=== PATIENT | male | born 1980 | race Caucasian/White ===

== ENCOUNTER 2016-05-19 11:22 | Emergency (ER) | payer SELFPAY ==
[2016-05-19] MEDS ORDERED: Lidocaine 2%Visc 15ml 20 MG/ML UDC ONE (11:54)
[2016-05-19] MEDS ORDERED: Lidocaine 2%Visc 15ml 20 MG/ML UDC PO ONE (11:55)
[2016-05-19 12:14] VITALS: BP 121/88
--- NOTE | 2016-05-19 19:07 | ED Physician Documentation ---
General Adult - HISTORIAN Historian: patient - HPI Stated Complaint: wound left leg Chief Complaint: General Adult Further Comments: yes (36 year old male patient presents with complaints of right lower leg wound. States he cut his leg with a chainsaw on 05-15-16 and was seen by the [facility] in the ER, was instructed to follow up with physician there. Patient states he has been doing wet to dry dressing changed every 2 hours and has used all of his pain medications.) - ROS CONST: no problems EYES/ENT: none CVS/RESP: none GI/: none MS/SKIN/LYMPH: none NEURO/PSYCH: difficulty walking (due to leg pain). denies: headache, dizziness - PAST HX Past History: none Other History: none Allergies/Adverse Reactions: Allergies Allergy/AdvReac Type Severity Reaction Status Date / Time No Known Allergies Allergy Verified 05/19/16 12:05 Home Medications: Ambulatory Orders Medication Instructions Recorded Sulfamethoxazole/Trimethoprim 1 each PO BID 05/19/16 [Bactrim Ds] oxyCODONE HCL/ACETAMINOPHEN 1 tab PO Q4 PRN 05/19/16 [Percocet 5/325] - SOCIAL HX Smoking History: cigarettes Alcohol Use: occasionally - FAMILY HX Family History: No - VITAL SIGNS Vital Signs: Vital Signs Temp Pulse Resp BP Pulse Ox 98.1 F 98 H 18 121/88 97 05/19/16 13:20 05/19/16 13:20 05/19/16 13:20 05/19/16 13:20 05/19/16 13:20 - REVIEWED ASSESSMENTS Nursing Assessment Reviewed: Yes Vitals Reviewed: Yes Progress - Progress Progress: Viscous lidocaine to wound 1215 Small amount of debridment of non-viable tissue. Wound instructions reviewed with patient. Instructed to stop doing wet-dry every 2 hours, educated on wound bed healing. Xeroflow to wound bed, covered with 4x4, wrapped with kerlix. Explained patient needed to follow up with wound clinic. Patient states he does not have insurance and will not be following up. ED Results Lab/Radiology - Orders Orders: ED Orders Category Date Time Status Lidocaine 2%Visc 15ml [Xylocaine] Med 05/19/16 11:55 Discontinued 15 mg PO NOW ONE Lidocaine 2%Visc 15ml [Xylocaine] Med 05/19/16 11:54 Discontinued 300 mg .ROUTE .STK-MED ONE General Adult Physical Exam - PHYSICAL EXAM GENERAL APPEARANCE: mild distress RESPIRATORY: no resp distress, chest non-tender, breath sounds normal CVS: reg rate & rhythm, heart sounds normal, equal pulses, no murmur, no gallop , PMI nml, no JVD, no friction rub, 24 ABDOMEN: soft, no organomegaly, normal bowel sounds, no abdominal bruit, no distension BACK: normal inspection, no CVA tenderness SKIN: normal color, warm/dry, NR, INT, PAL, DR EXTREMITIES: non-tender, normal range of motion, no evidence of injury, no edema , other (right lower leg with 5 cm x 2.5 cm wound, small amount of non-viable tissue noted. ) NEURO: oriented X3, CN's nml as tested, motor nml, sensation nml, mood/affect nml Discharge Clincal Impression: Wound of right leg Qualifiers: Encounter type: initial encounter Qualified Code(s): S81.801A - Unspecified open wound, right lower leg, initial encounter Referrals: Primary Doctor,No [Primary Care Provider] - 2 Days Additional Instructions: Wound care: Clean wound 2 times a day with hibiclens and Saline or water. Towel dry Follow up with the wound care clinic at the [facility] or [facility] "yellow" xeroflow in the wound bed, place a thin coat of zinc oxide on the skin around the wound Cover with 4x4, wrap with kerlix and megan wrap. You may shower Home Medications: Ambulatory Orders Sulfamethoxazole/Trimethoprim [Bactrim Ds] 1 each PO BID 05/19/16 oxyCODONE HCL/ACETAMINOPHEN [Percocet 5/325] 1 tab PO Q4 PRN 05/19/16 Condition: Stable Disposition: 01 HOME, SELF-CARE Decision to Admit: NO Decision Time: 13:00
== END 2016-05-19 13:20 | disposition home or self-care (01) ==
LOC: ED 11:22
DX: S81.801D Unspecified open wound, right lower leg, subsequent encounter (principal)
CPT/HCPCS: A9270 ×2; 99282; 99283